=== PATIENT | female | born 1970 | race Caucasian/White ===

== ENCOUNTER 2017-10-07 20:41 | Emergency (ER) | payer SELFPAY | END 2017-10-07 21:01 | disposition left against medical advice (07) | LOC: ERS 20:41 | DX: Z53.21 Procedure and treatment not carried out due to patient leaving prior to being seen by health care provider (principal) ==

== ENCOUNTER 2018-06-01 17:45 | Observation (INO) | payer SELFPAY ==
[2018-06-01 18:27] LABS: #Basophils 0.1 thou/uL (0.0-0.2); #Eosinphils 0.2 thou/uL (0.0-0.7); #Lymphocytes 2.6 thou/uL (1.20-3.40); #Monocytes 0.9 thou/uL (0.11-0.59); #Neutrophils 6.1 thou/uL (1.40-6.50); %Basophils 1.1 % (0.0-1.0); %Eosinophils 2.3 % (0.0-10.0); %Lymphocytes 26.3 % (21.0-51.0); %Monocytes 8.7 % (0.0-10.0); %Neutrophils 61.7 % (42.0-75.0); Hemoglobin 13.6 g/dL (12.0-16.0); Mean Corpuscular HGB CONC 34.1 g/dL (32.0-36.0); Mean Platelet Volume 7.3 fL (7.4-10.4); Platelet Count 286 thou/uL (130-400); RBC Distribution Width 16.2 % (11.5-14.5); Red Blood Cell (RBC) Count 4.01 mill/uL (4.20-5.40); White Blood Cell (WBC) Count 9.9 thou/uL (4.8-10.8)
--- NOTE | 2018-06-01 19:04 | RAD ---
CHEST TWO VIEWS: HISTORY: Cough. TECHNIQUE: PA and lateral views of the chest are obtained. FINDINGS: The lungs are well aerated. No evidence of active intrathoracic disease is seen. No evidence of eff usions, pneumonia, or pneumothorax is seen. IMPRESSION: Normal two views chest. POS: [facility]
[2018-06-01] MEDS ORDERED: methylPREDNISolone Sod Succ/PF 125 MG/2 ML VIAL ONE (19:39)
[2018-06-01] MEDS ORDERED: Albuterol Sulfate 2.5 mg/3 ml Neb ONE (19:47)
[2018-06-01 19:55] LABS: ALT (SGPT) 21 U/L (8-55); AST (SGOT) 19 U/L (5-34); Albumin 4.1 g/dL (3.5-5.0); Alkaline Phosphatase 130 U/L (40-150); Anion Gap 17 mmol/L (10-20); BUN (Urea Nitrogen) 6 mg/dL (7.0-18.7); Bilirubin, Total 0.3 mg/dL (0.2-1.2); Calc. Creatinine Clearance 0 mL/min (70-130); Calcium 9.2 mg/dL (7.8-10.44); Carbon Dioxide 22 mmol/L (22-29); Chloride 104 mmol/L (98-107); Estimated GFR-MDRD 65; Glucose 121 mg/dL (70-105); Potassium 3.9 mmol/L (3.5-5.1); Protein, Total 7.1 g/dL (6.0-8.3); Sodium 139 mmol/L (136-145)
[2018-06-01 19:58] LABS: CKMB 2.4 ng/mL (0-6.6); Troponin I Less than 0.010 ng/mL (< 0.028)
[2018-06-01 20:35] LABS: Bilirubin Negative (Negative); Blood, Urine Negative (Negative); Clarity CLEAR (Clear); Glucose, Urine (Dipstick) Negative (Negative); Leukocyte Negative (Negative); Nitrite Negative (Negative); Protein, Urine (Dipstick) Negative (Neg-Trace); Specific Gravity, Urine 1.003 (1.002-1.036); Urobilinogen 0.2 mg/dL (0.2-1.0)
[2018-06-01] MEDS ORDERED: cefTRIAXone\\ROCEPHIN 1 GM VIAL ONE (20:57)
--- NOTE | 2018-06-01 21:55 | PDOC.FPRHP ---
- History of Present Illness Chief Complaint: SOB History of Present Illness: Patient presents with 3 day history of productive cough, sore throat, nasal congestion. Symptoms have been worsening and pt began to feel SOB today. Denies chest pain, heart palpitations, fever, chills. Does not have a PCP and has no medical diagnosis. At baseline pt has exertional dyspnea, able to ambulate around house without difficulty. ED Course: 1L, azithromycin, ceftriaxone, ASA, duoneb, methylprednisolone 125 - Allergies/Adverse Reactions Allergies Allergy/AdvReac Type Severity Reaction Status Date / Time No Known Allergies Allergy Verified 06/01/18 23:10 - Home Medications Medication Instructions Recorded Confirmed Type No Known 06/01/18 06/01/18 History - History PMHx: None PSHx: None FHx: Denies Social: Lives with , moving to [place] soon. Smokes 2 PPD for 35 years. Denies alcohol or drug use. - Review of Systems General: denies: fever/chills, fatigue Eyes: denies: eye pain, vision changes ENT: reports: nasal congestion. denies: rhinorrhea Respiratory: reports: cough, congestion, shortness of breath, exercise intolerance Cardiovascular: denies: chest pain, palpitation, edema Gastrointestinal: denies: nausea, vomiting, diarrhea, constipation, abdominal pain Genitourinary: denies: incontinence, dysuria Skin: denies: rashes, lesions Musculoskeletal: denies: pain, swelling Neurological: denies: numbness, weakness Psychological: denies: anxiety, depression - Vital signs BP: 111/79 HR: 107 RR: 29 Tmax: 98.2 Pox: 98% on 2L Wt: 87 kg - Physical Exam Constitutional: NAD, awake, alert and oriented, other (on 2L NC) HEENT: normocephalic and atraumatic, PERRLA, EOMI, grossly normal vision, grossly normal hearing, normal nasal mucosa, MMM, oropharynx clear Neck: supple, trachea midline, no JVD Heart: RRR, normal S1/S2, pulses present, no edema Lungs: CTAB, other (decreased air movement) Abdomen: soft, non-tender, bowel sounds present Musculoskeletal: normal structure, normal tone, ROM grossly normal Neurological: no focal deficit Skin: no rash/lesions, good turgor, capillary refill <2 seconds Heme/Lymphatic: no unusual bruising or bleeding Psychiatric: normal mood and affect FMR H&P: Results - Labs Result Diagrams: 06/02/18 05:17 18 05:17 Lab results: WBC 9.9 thou/uL (4.8-10.8) 06/01/18 18:18 Hgb 13.6 g/dL (12.0-16.0) 06/01/18 18:18 Hct 40.0 % (36.0-47.0) 06/01/18 18:18 MCV 100.0 fL (78.0-98.0) H 18 18:18 Plt Count 286 thou/uL (130-400) 06/01/18 18:18 Neutrophils % 61.7 % (42.0-75.0) 06/01/18 18:18 Sodium 139 mmol/L (136-145) 06/01/18 18:18 Potassium 3.9 mmol/L (3.5-5.1) 06/01/18 18:18 Chloride 104 mmol/L (98-107) 06/01/18 18:18 Carbon Dioxide 22 mmol/L (22-29) 06/01/18 18:18 BUN 6 mg/dL (7.0-18.7) L 06/01/18 18:18 Creatinine 0.92 mg/dL (0.6-1.1) 06/01/18 18:18 Glucose 121 mg/dL (70-105) H 06/01/18 18:18 Lactic Acid 2.3 mmol/L (0.5-2.2) H 06/01/18 18:18 Calcium 9.2 mg/dL (7.8-10.44) 06/01/18 18:18 Total Bilirubin 0.3 mg/dL (0.2-1.2) 06/01/18 18:18 AST 19 U/L (5-34) 06/01/18 18:18 ALT 21 U/L (8-55) 06/01/18 18:18 Alkaline Phosphatase 130 U/L (40-150) 18 18:18 Creatine Kinase 125 U/L (29-168) 06/01/18 18:18 CK-MB (CK-2) 2.4 ng/mL (0-6.6) 06/01/18 18:18 Serum Total Protein 7.1 g/dL (6.0-8.3) 06/01/18 18:18 Albumin 4.1 g/dL (3.5-5.0) 06/01/18 18:18 Urine Ketones Negative mg/dL (Negative) 06/01/18 20:20 Urine Blood Negative (Negative) 06/01/18 20:20 Urine Nitrite Negative (Negative) 06/01/18 20:20 Ur Leukocyte Esterase Negative (Negative) 06/01/18 20:20 FMR H&P: A/P - Problem List (1) Sepsis Current Visit: Yes Status: Acute Code(s): A41.9 - SEPSIS, UNSPECIFIED ORGANISM (2) COPD exacerbation Current Visit: Yes Status: Acute Code(s): J44.1 - CHRONIC OBSTRUCTIVE PULMONARY DISEASE W (ACUTE) EXACERBATION (3) Lactic acidosis Current Visit: Yes Status: Acute Code(s): E87.2 - ACIDOSIS (4) Tobacco abuse Current Visit: Yes Status: Acute Code(s): Z72.0 - TOBACCO USE - Plan 47 yo F with no PMH presents for SOB Sepsis - admitted for sepsis considering tachycardia, tachypnea, lactic acidosis. no leukocytosis. - Received 1L in ED. Continue maintenance IVF NS @ 110 - Lactic acid 2.3->2.4 - received azithromycin and ceftriaxone in ED. With pneumonia less likely than COPD exacerbation, deescalated abx to azithromycin only. - d-dimer negative, PE not likely - CXR negative COPD exacerbation - possible undiagnosed COPD, significant smoking history - pt responded to duonebs, continue prn - received methylprednisolone 125 in ED. may consider continuation of steroids in am. - 98% on 2L. Will wean to maintain O2 sats >90% Tobacco dependence - 70 pack year history - encourage smoking cessation Diet: regular Ppx: SCDs Dispo: admit to medical floor FMR H&P: Upper Level - Pertinent history 47F with 3 day history of nasal congestion, worsening productive cough, and SOB. Symptoms began Friday and have worsened since onset. She became uncharacteristically SOB this morning and came to the ER. Found to be tachycardic and tachypneic in ED. Patient admittedly does not see a doctor on a regular basis. She denies any other PMH but uses an inhaler 2-3x/week for SOB. She has smoked 1.5 PPD for 35 years. She does not normally wear oxygen at home. Since friday she denies skin rash, n/v/d, abdominal pain, chest pain, palpitations, lower extremity swelling, hemoptysis. ED: NS 1L, Azithromycin 500mg, Ceftriaxone 1G, methylprednisolone 125mg, ASA 324mg, DuoNeb x 1 - Pertinent findings Vitals: 129/80 mmHg 96 bpm (110 bpm on presentation) 22 RR 94% on RA Gen: A&Ox4 CV: RRR; no murmurs CTA: CTA-B; decreased breath sounds in bilateral bases Abd: soft; non tender; non distended Skin: no rashes or lesions; normal turgor CBC, CMP, UA normal LA: 2.3 D-dimer: 0.35 CXR: hyperinflation but no consolidations - Plan Date/Time: 06/01/182154 1. Sepsis 2/2 CAP: likely a mixed etiology with COPD exacerbation. Continue azithromycin and rocephin. DuoNebs q6hr PRN. NS @ 110 until LA normalizes. Low suspicion for PE given negative D-dimer and physical exam. 2. Suspected COPD: continue duonebs. s/p steroids in ED. 3. Lactic acidosis: repeat in 4 hours. continue IVF 4. Tobacco abuse: nicotine patch and marriage counselor minister cessation I, Jackson Stewart, have evaluated this patient and agree with findings/plan as outlined by manager international resident. Pertinent changes/additions are listed here. Attending Addendum - Attending Addendum Date/Time: 06/02/18 0804. Seen and examined on 06/01 day of admission. I personally evaluated the patient and discussed the management with Dr. Maldonado and Terry. I agree with and repeated the History, Examination, Assessment and Plan documented above with any addition or exceptions noted below. Strongly suspect COPD exacerbation and will treat as such. 10 minutes spent in tobacco cessation counseling.
[2018-06-01] MEDS ORDERED: Azithromycin 500 MG VIAL ONE (22:26)
[2018-06-01] MEDS ORDERED: Acetaminophen 650 MG Suppository PR PRN (23:13)
[2018-06-01] MEDS ORDERED: Sodium Chloride 0.9% 1,000 ML IV SCH (23:13)
[2018-06-01] MEDS ORDERED: Acetaminophen 325 MG TAB PO PRN ×2 (23:13→23:14)
[2018-06-01] MEDS ORDERED: Ondansetron HCl/PF 4 MG/2 ML Vial IVP PRN ×2 (23:13→23:14)
[2018-06-01] MEDS ORDERED: Ondansetron ODT 4 MG TAB PO PRN (23:13)
[2018-06-01] MEDS ORDERED: Ondansetron ODT 4 MG TAB SL PRN (23:14)
[2018-06-01] MEDS ORDERED: Azithromycin 500 MG in Sodium Chloride 0.9% 250 ML 250 ML IVPB SCH (23:30)
[2018-06-01 23:32] LABS: Lactic Acid 2.4 mmol/L (0.5-2.2)
[2018-06-02 00:42] VITALS: BMI 37.7
[2018-06-02] MEDS ORDERED: Nicotine 14 MG PATCH TD SCH (04:00)
--- NOTE | 2018-06-02 05:26 | PDOC.FM ---
- Subjective Subjective: NAEO. Patient was weaned off of nasal canula overnight and required only 1L occasionally to maintain sats >90%. Off NC on exam and in no distress. States last duoneb was around 00:00 and has not required one since. Reports feeling much better this AM. Denies any fever/chills, CP, SOB, or N/V/D. Says her cough is still present but is now non-productive and much improved. - Objective MAR Reviewed: Yes Vital Signs & Weight: Vital Signs (12 hours) Temp Pulse Resp BP Pulse Ox 06/02/18 03:10 98.0 F 102 H 18 126/66 95 06/02/18 00:25 110 H 18 95 06/01/18 22:48 98.2 F 106 H 16 127/80 93 L Weight Weight 87.543 kg Result Diagrams: 06/02/18 05:17 06/02/18 05:17 Phys Exam - Physical Examination Constitutional: NAD HEENT: sclera anicteric Neck: no nodes, supple, full ROM Respiratory: no wheezing, no rales, no rhonchi, clear to auscultation bilateral decreased breath sounds throughout Cardiovascular: RRR, no significant murmur Gastrointestinal: soft, non-tender, no distention, positive bowel sounds Musculoskeletal: no edema Neurological: non-focal, moves all 4 limbs Psychiatric: normal affect, A&O x 3 Skin: no rash, normal turgor Dx/Plan (1) Sepsis Code(s): A41.9 - SEPSIS, UNSPECIFIED ORGANISM Status: Acute (2) CAP (community acquired pneumonia) Code(s): J18.9 - PNEUMONIA, UNSPECIFIED ORGANISM Status: Acute (3) Lactic acidosis Code(s): E87.2 - ACIDOSIS Status: Acute (4) COPD exacerbation Code(s): J44.1 - CHRONIC OBSTRUCTIVE PULMONARY DISEASE W (ACUTE) EXACERBATION Status: Acute (5) Tobacco abuse Code(s): Z72.0 - TOBACCO USE Status: Acute - Plan Plan: 47YOF with no PMH presents for SOB & 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 viral bronchitis. 1. Sepsis 2/2 suspected CAP vs. bronchitis: - Patient admitted for sepsis as she met SIRS criteria with her tachycardia, tachypnea, & lactic acidosis. However, was afebrile w/ no leukocytosis. - Will consider de-escalating maintenance IVF NS @ 110 if patient is tolerating PO. - CXR negative but could still have early CAP vs. viral bronchitis vs. viral URI. - Received azithromycin and ceftriaxone in ED. However, with pneumonia less likely than COPD exacerbation, deescalated abx to azithromycin only for suspected COPD exacerbation. - Will continue azithromycin today. 2. lactic acidosis: - Resolved. - lactate increased from 2.3 on presentation to 2.4. Repeat this AM WNL at 2.0. - Will consider stopping IVFs as patient is hemodynamically stable and able to adequately hydrate PO. 3. COPD exacerbation 2/2 CAP vs. bronchitis: - No diagnosis of COPD but possible given patient's significant smoking history. - Will continue prn duonebs & azithromycin. - Will consider starting on PO steroids this AM. - Will continue to use NC only to maintain O2 sats >90%. 4. Tobacco dependence - Patient has a 70 pack year history. - Will encourage smoking cessation. - Will continue with nicotine patch while in hospital. Diet: regular Ppx: SCDs Dispo: D/c later today on PO meds if respiratory status remains stable.
[2018-06-02 06:41] LABS: Anion Gap 14 mmol/L (10-20); BUN (Urea Nitrogen) 6 mg/dL (7.0-18.7); Calc. Creatinine Clearance 112 mL/min (70-130); Calcium 8.7 mg/dL (7.8-10.44); Carbon Dioxide 21 mmol/L (22-29); Chloride 106 mmol/L (98-107); Estimated GFR-MDRD 72; Glucose 171 mg/dL (70-105); Potassium 4.3 mmol/L (3.5-5.1); Sodium 137 mmol/L (136-145)
[2018-06-02 06:46] LABS: #Lymphocytes 0.8 thou/uL (1.20-3.40); #Monocytes 0.1 thou/uL (0.11-0.59); #Neutrophils 6.7 thou/uL (1.40-6.50); %Basophils 0.2 % (0.0-1.0); %Eosinophils 0.2 % (0.0-10.0); %Lymphocytes 10.2 % (21.0-51.0); %Neutrophils 88.3 % (42.0-75.0); Hemoglobin 12.4 g/dL (12.0-16.0); Mean Corpuscular HGB CONC 32.1 g/dL (32.0-36.0); Mean Corpuscular Hemoglobin 32.7 pg (27.0-31.0); Mean Platelet Volume 7.3 fL (7.4-10.4); Platelet Count 264 thou/uL (130-400); RBC Distribution Width 16.3 % (11.5-14.5); Red Blood Cell (RBC) Count 3.79 mill/uL (4.20-5.40); White Blood Cell (WBC) Count 7.6 thou/uL (4.8-10.8)
[2018-06-02] MEDS ORDERED: predniSONE 20 MG TAB PO SCH (08:00)
[2018-06-02] MEDS ORDERED: Azithromycin 250 MG TAB PO SCH (09:00)
[2018-06-02 11:45] VITALS: BP 115/80; TEMP 98.2
--- NOTE | 2018-06-02 16:30 | PRG ---
DATE OF SERVICE: 06/02/2018 This is an addendum to the note of Dr. Cesia Rain. SUBJECTIVE: Ms. Franks is a 47-year-old white female with a [id number] history of smoking, admit louis with increased shortness of breath and cough suggestive of exacerbation of COPD. She has respond ed well to steroids and Zithromax. It was initially felt that she might be septic, but she is much b ziyad this morning and no longer meets SIRS or septic criterion. Her chest x-ray did not show eviden ce of pneumonia. She is also counseled about smoking cessation and we have offered her some help wit h this issue as well. She will be discharged today on an albuterol inhaler and 40 mg daily of predni sone to complete 5 days of therapy. She has no insurance, but would otherwise have benefited from a Spiriva inhaler as well as a short-acting muscarinic. In the event, she will be discharged on albute rol and steroids.
[2018-06-02] MEDS ORDERED: cefTRIAXone\\ROCEPHIN 1 GM in Sodium Chloride 0.9% 100 ML IVPB SCH (21:00)
--- NOTE | 2018-06-03 01:40 | DIS-2 ---
DATE OF ADMISSION: 06/01/2018 DATE OF DISCHARGE: 06/02/2018 RESIDENT: Dr. Cesia Rain. ADMITTING ATTENDING: Dr. Sebastián Anne. DISCHARGE ATTENDING: Dr. Federico Castillo. CONSULTS: None. PROCEDURES: Chest x-ray which showed a normal 2-view of the chest. PRIMARY DIAGNOSES: 1. Suspected acute on chronic obstructive pulmonary disease exacerbation secondary to viral upper respiratory infection versus viral bronchitis. 2. Lactic acidosis. SECONDARY DIAGNOSIS: History of tobacco abuse. DISCHARGE MEDICATIONS: 1. Azithromycin 500 mg p.o. daily for 4 days. 2. Prednisone 40 mg p.o. in the morning with meals for 4 days. 3. Albuterol sulfate or Proventil HFA 2 puffs inhaled every 4 hours p.r.n. DISCONTINUED MEDICATIONS: None. HOSPITAL COURSE: The patient is a 47-year-old female with no significant past medical history other than smoking 2 packs a day for 35 years, who presented to the emergency department with a chief complaint of a 3-day history of productive cough, sore throat, and nasal congestion with associated worsening shortness of breath over the last day. The patient was seen and evaluated in the emergency department and received 1 liter of normal saline, IV azithromycin and ceftriaxone, one DuoNeb treatment, 125mg of IV methylprednisolone, & a dose of p.o. aspirin. A chest x-ray was also obtained which was completely normal. Routine lab work was significant for a normal white blood cell count of 9.9, a D-dimer of 0.35 and an elevated lactic acid of 2.4. All other labs were noted to be within normal limits. Of note, the patient was initially deemed to be septic as she was tachycardic and tachypneic upon presentation with an elevated lactate level and was therefore admitted to the floor for observation overnight. The patient did require 1Lof O2 via nasal cannula for oxygen support overnight on and off; however, by the following morning, the patient was satting well on room air without any signs of respiratory distress. Of note, she required only one additional DuoNeb treatment around midnight on the day of discharge. Her lactic acidosis also completely resolved as the patient was kept on normal saline at 110 mL an hour overnight. Thus, due to the fact the following morning the patient was completely hemodynamically stable, she was cleared for discharge with a presumptive diagnosis of an acute on chronic obstructive pulmonary disease exacerbation secondary to a viral illness/URI. DISPOSITION: Stable. DISCHARGE INSTRUCTIONS: 1. Location: Home. 2. Diet: Regular diet. No restrictions. 3. Activity: As tolerated. No restrictions. 4. Followup: The patient was instructed to follow up with the [facility] within 1 week following her discharge. NARESH
--- NOTE | 2018-06-06 11:46 | EKG ---
Test Reason : Blood Pressure : / mmHG Vent. Rate : 115 BPM Atrial Rate : 115 BPM P-R Int : 112 ms QRS Dur : 076 ms QT Int : 290 ms P-R-T Axes : 073 086 056 degrees QTc Int : 401 ms Sinus tachycardia Nonspecific T wave abnormality Abnormal ECG Confirmed by ADRIANNE BLACKBURN DO ([id number]), brands editor SANDOR OSORIO ([id number] on 06/06/2018 11:46:37 AM Referred By: Confirmed By:ADRIANNE BLACKBURN DO
== END 2018-06-02 12:54 | disposition home or self-care (01) ==
LOC: ERS 17:45 → 2SW 20:58
PROVIDERS: ADMIT Emergency Medicine; ATTEND Emergency Medicine
DX: A41.9 Sepsis, unspecified organism (principal); J18.9 Pneumonia, unspecified organism; J44.1 Chronic obstructive pulmonary disease with (acute) exacerbation; E87.2 Acidosis; F17.210 Nicotine dependence, cigarettes, uncomplicated
CPT/HCPCS: 36415; 71046; 80048; 80053; 81003; 82553; 83605; 84484; 85025; 85379; 87040; 90471; 90732; 93005; 94640; 96361; 96365; 96375; G0009; G0378; J0456; J0696; J2930; J7506; J7611; J7620

== ENCOUNTER 2018-06-07 18:28 | Emergency (ER) | payer SELFPAY | END 2018-06-07 19:48 | disposition home or self-care (01) | LOC: ERS 18:28 | DX: B37.0 Candidal stomatitis (principal); J44.9 Chronic obstructive pulmonary disease, unspecified; F41.9 Anxiety disorder, unspecified; F17.210 Nicotine dependence, cigarettes, uncomplicated; Z79.899 Other long term (current) drug therapy | CPT/HCPCS: 99282 ==

== ENCOUNTER 2021-02-04 16:59 | Inpatient (IN) | payer SELFPAY ==
[2021-02-04] MEDS ORDERED: Aspirin Chewable 81 MG TAB ONE (17:28)
[2021-02-04 17:33] LABS: #Basophils 0.1 thou/uL (0.0-0.2); #Eosinphils 0.2 thou/uL (0.0-0.7); #Lymphocytes 3.2 thou/uL (1.20-3.40); #Monocytes 0.6 thou/uL (0.11-0.59); #Neutrophils 4.9 thou/uL (1.40-6.50); %Basophils 0.9 % (0.0-1.0); %Eosinophils 1.7 % (0.0-10.0); %Lymphocytes 35.5 % (21.0-51.0); %Neutrophils 54.9 % (42.0-75.0); Hemoglobin 13.8 g/dL (12.0-16.0); Mean Corpuscular HGB CONC 33.1 g/dL (32.0-36.0); Mean Corpuscular Hemoglobin 31.2 pg (27.0-31.0); Mean Corpuscular Volume 94.2 fL (78.0-98.0); Platelet Count 133 thou/uL (130-400); RBC Distribution Width 17.3 % (11.5-14.5); Red Blood Cell (RBC) Count 4.42 mill/uL (4.20-5.40)
[2021-02-04 18:06] LABS: ALT (SGPT) 13 U/L (8-55); AST (SGOT) 23 U/L (5-34); Albumin 4.1 g/dL (3.5-5.0); Alkaline Phosphatase 129 U/L (40-110); Anion Gap 16 mmol/L (10-20); BUN (Urea Nitrogen) 12 mg/dL (9.8-20.1); Bilirubin, Total 0.3 mg/dL (0.2-1.2); CK (CPK) 415 U/L (29-168); Calc. Creatinine Clearance 0 mL/min (70-130); Calcium 9.4 mg/dL (7.8-10.44); Carbon Dioxide 25 mmol/L (22-29); Chloride 100 mmol/L (98-107); Globulin 3.8 g/dL (2.4-3.5); Glucose 113 mg/dL (70-105); Lipase 87 U/L (8-78); Potassium 4.9 mmol/L (3.5-5.1); Protein, Total 7.9 g/dL (6.0-8.3); Sodium 136 mmol/L (136-145)
[2021-02-04] MEDS ORDERED: Enoxaparin Sodium 80 MG/0.8 ML SYRINGE ONE (18:18)
[2021-02-04] MEDS ORDERED: Acetaminophen 325 MG TAB PO PRN (19:18)
[2021-02-04] MEDS ORDERED: Ondansetron ODT 4 MG TAB PO PRN (19:18)
[2021-02-04] MEDS ORDERED: Ondansetron PF 4 MG/2 ML Vial IVP PRN (19:18)
[2021-02-04 20:25] VITALS: BMI 36.1
[2021-02-04 23:04] LABS: SARS-CoV-2 PCR by NAA Not Detected (NotDetected)
[2021-02-05 04:35] LABS: #Basophils 0.1 thou/uL (0.0-0.2); #Eosinphils 0.2 thou/uL (0.0-0.7); #Lymphocytes 3.4 thou/uL (1.20-3.40); #Monocytes 0.6 thou/uL (0.11-0.59); #Neutrophils 3.3 thou/uL (1.40-6.50); %Basophils 1.3 % (0.0-1.0); %Eosinophils 2.6 % (0.0-10.0); %Lymphocytes 44.5 % (21.0-51.0); %Monocytes 7.7 % (0.0-10.0); %Neutrophils 43.9 % (42.0-75.0); Hemoglobin 12.6 g/dL (12.0-16.0); Mean Corpuscular HGB CONC 32.6 g/dL (32.0-36.0); Mean Corpuscular Hemoglobin 30.3 pg (27.0-31.0); Mean Platelet Volume 8.2 fL (7.4-10.4); Platelet Count 188 thou/uL (130-400); RBC Distribution Width 17.2 % (11.5-14.5); Red Blood Cell (RBC) Count 4.16 mill/uL (4.20-5.40); White Blood Cell (WBC) Count 7.6 thou/uL (4.8-10.8)
[2021-02-05 04:53] LABS: Anion Gap 12 mmol/L (10-20); BUN (Urea Nitrogen) 12 mg/dL (9.8-20.1); Calc. Creatinine Clearance 104 mL/min (70-130); Calcium 9.1 mg/dL (7.8-10.44); Carbon Dioxide 26 mmol/L (22-29); Chloride 105 mmol/L (98-107); Glucose 99 mg/dL (70-105); Potassium 4.1 mmol/L (3.5-5.1); Sodium 139 mmol/L (136-145)
[2021-02-05] MEDS: Enoxaparin Sodium 80 MG/0.8 ML SYRINGE SC SCH ×2 (08:32→21:10)
[2021-02-05] MEDS: Aspirin Chewable 81 MG TAB PO SCH (08:32)
[2021-02-05] MEDS ORDERED: Enoxaparin Sodium 40 MG/0.4 ML SYRINGE SC SCH (09:00)
[2021-02-05 12:42] LABS: Platelet Count 205 thou/uL (130-400)
[2021-02-05] MEDS: Atorvastatin Calcium 40 MG TAB PO SCH (21:10)
[2021-02-06] MEDS: Nicotine 14 MG PATCH TD SCH (03:48)
[2021-02-06] MEDS: Aspirin Chewable 81 MG TAB PO SCH (07:20)
[2021-02-06] MEDS: Enoxaparin Sodium 80 MG/0.8 ML SYRINGE SC SCH ×2 (07:20→20:42)
[2021-02-06] MEDS: Atorvastatin Calcium 40 MG TAB PO SCH (20:42)
[2021-02-07] MEDS: Nicotine 14 MG PATCH TD SCH (02:39)
[2021-02-07] MEDS: Aspirin Chewable 81 MG TAB PO SCH (05:29)
[2021-02-07] MEDS ORDERED: Lidocaine 1% (PF) 30 ML VIAL ONE (06:35)
[2021-02-07] MEDS ORDERED: Fentanyl 100 MCG/2 ML VIAL ONE (07:14)
[2021-02-07] MEDS ORDERED: Midazolam HCl 2 mg/2 ml Vial ONE (07:14)
[2021-02-07] MEDS ORDERED: Acetaminophen/Codeine 30-300mg Tablet PO PRN (07:35)
[2021-02-07] MEDS ORDERED: Sodium Chloride 0.9% 200 ML IV PRN (07:35)
[2021-02-07] MEDS ORDERED: Clopidogrel Bisulfate 75 MG TAB PO SCH (07:45)
[2021-02-07] MEDS ORDERED: Sodium Chloride 0.9% 500 ML IV SCH (07:45)
[2021-02-07] MEDS ORDERED: Iopamidol 370 76% 100 ML VIAL ONE (08:44)
[2021-02-07 09:24] LABS: Hemoglobin 12.1 g/dL (12.0-16.0); Platelet Count 171 thou/uL (130-400)
[2021-02-07 13:34] VITALS: BP 113/69; TEMP 97.7
[2021-02-07] MEDS ORDERED: Atorvastatin Calcium 10 MG TAB PO SCH (21:00)
[2021-02-07] MEDS ORDERED: Lisinopril 2.5 MG TAB PO SCH (21:00)
[2021-02-08] MEDS ORDERED: Clopidogrel Bisulfate 75 MG TAB PO SCH (07:30)
[2021-02-08] MEDS ORDERED: Aspirin 81 mg Enteric Coated Tablet PO SCH (07:30)
== END 2021-02-07 14:26 | disposition home or self-care (01) | DRG 287 ==
LOC: ERS 16:59 → 2NO 18:34
PROVIDERS: ADMIT Internal Medicine; ATTEND Internal Medicine
PROC: 4A023N7 Measurement of Cardiac Sampling and Pressure, Left Heart, Percutaneous Approach (ICD-10-PCS; principal; 2021-02-07)
PROC: B2111ZZ Fluoroscopy of Multiple Coronary Arteries using Low Osmolar Contrast (ICD-10-PCS; 2021-02-07)
PROC: B2151ZZ Fluoroscopy of Left Heart using Low Osmolar Contrast (ICD-10-PCS; 2021-02-07)
DX: I25.110 Atherosclerotic heart disease of native coronary artery with unstable angina pectoris (principal); J44.9 Chronic obstructive pulmonary disease, unspecified; Z20.822 Contact with and (suspected) exposure to COVID-19; F41.9 Anxiety disorder, unspecified; F17.210 Nicotine dependence, cigarettes, uncomplicated; I25.5 Ischemic cardiomyopathy; K80.20 Calculus of gallbladder without cholecystitis without obstruction; Z79.899 Other long term (current) drug therapy; Z95.5 Presence of coronary angioplasty implant and graft; Z79.52 Long term (current) use of systemic steroids; I25.2 Old myocardial infarction
CPT/HCPCS: 36415; 71045; 76705; 76942; 80048; 80053; 82550; 82565; 83690; 84484; 85014; 85018; 85025; 85049; 87635; 93005; 93458; 94760; 96372; 99152; J1650; J2001; J2250; J3010; Q9967; U0003; U0005